=== PATIENT | male | born 1955 | race Caucasian/White ===

== ENCOUNTER 2016-08-13 08:16 | Emergency (ER) | payer MEDICARE, BC ==
[~2016-08-13] VITALS: Ht 162.6 cm; Wt 99.8 kg
[2016-08-13] MEDS ORDERED: LISINOPRIL20 MG PO (08:29)
[2016-08-13] MEDS ORDERED: ALLOPURINOL100 MG PO (08:29)
[2016-08-13] MEDS ORDERED: LOPRESSOR 50 MG50 MG PO (08:30)
[2016-08-13] MEDS ORDERED: ATIVAN1 MG PO (08:30)
[2016-08-13] MEDS ORDERED: CYCLOBENZAPRINE10 M1 OR (08:30)
[2016-08-13] MEDS ORDERED: GLIMEPIRIDE 4MG4 MG PO (08:31)
[2016-08-13] MEDS ORDERED: GABAPENTIN300 M1 PO (08:31)
[2016-08-13] MEDS ORDERED: PANTOPRAZOLE SO40 M1 PO (08:32)
[2016-08-13] MEDS ORDERED: HYDROCHLOROTH12.5 M1 PO (08:33)
[2016-08-13] MEDS ORDERED: ATORVASTATIN CA80 MG PO (08:34)
[2016-08-13] MEDS ORDERED: METFORMIN HCL1000 MG PO (08:34)
[2016-08-13] MEDS ORDERED: OXYCODONE AND A1 TA5 PO (08:35)
[2016-08-13] MEDS ORDERED: CITALOPRAM HYDR40 MG PO (08:35)
--- NOTE | 2016-08-13 08:45 | Emergency Room Report ---
History of Present Illness Time Seen by MD Cortez Presenting Problem in Triage Pt arrived:Walked Presenting Problem:PT STATES HE DROPPED THE TONGUE OF A TRAILER ON HIS LEFT FOOT YESTERDAY EVENING. PAIN IS LATERAL DORSAL AROUND THE 5TH DIGIT. BRUISING IS NOTED UNDER THE 5TH DIGIT. Onset of symptoms date/time:/ or onset unknown for:MEDICAL HX UNKNOWN Treatment Prior to Arrival: [employer]RNAMENT[employer] DES[employer] Provided by: Sepsis Risk Assessment: Temp: 98 B/P: 173/95 MAP: 121 Pulse: 107 Resp: 20 Recent fever? N Clinical Suspician of Infection? N Mental Status: 1 - Regular (Normal Baseline) Sepsis Risk:Possible Sepsis Risk Have you (or family members/close friends) recently traveled outside the [place]? N If Yes, where/when: Have you had exposure to infectious disease within the past month? TB? Other? Specify: Patient states last night he accidentally dropped the part of a trailer hitch on his LEFT foot he complains of continued pain on his lateral LEFT foot laterally. moderate achy no radiation worse with ambulation denies any ankle pain ALLERGIES Coded Allergies: No Known Allergies (08/13/16) Home Medications Reported Medications Lisinopril 20 MG PO DAILY #30 Allopurinol 100 MG PO TID #60 Lorazepam (Ativan 1MG) 1 MG PO BIDP PRN ANXIETY #60 Cyclobenzaprine Hcl 10 MG OR #30 Metoprolol Tartrate (Lopressor) 50 MG PO BID #60 Gabapentin 300 MG PO BID #90 Glimepiride (Glimepiride 4MG Tablet) 4 MG PO #60 Pantoprazole Sodium 40 MG PO DAILY #30 History Medical History General Hypertension? Yes Diabetes? Yes Insulin Dependent: No Insulin Pump: No Home FSBS? Yes Arthritis? Yes More? Yes Additional hx: GOUT Immunization Hx DT/Tetanus 1-4 Years Ago Surgical Hx Previous Surgery?Y Hernia Repair STENT Social History Smoking Hx Smoker: Current Every Day Smoker Tobacco: Yes Type Snuff Alcohol Alcohol: No Review of Systems All Other Systems Reviewed and Negative Physical Exam Vital Signs Vital Signs Date Time Temp Pulse Resp B/P Pulse O2 O2 Flow FiO2 Ox Delivery Rate 08/13 0819 98.0 107 20 173/95 99 General Appearance: Nontoxic Head: Normocephalic, without obvious abnormality, atraumatic. Eyes: conjunctiva/corneas clear ENT: Mucous membranes moist. Neck: No jugular venous distention. Extremities: no edema Musculoskeletal: LEFT foot has tenderness over the lateral foot there is no medial tenderness there is no tenderness in the ankle 5th toe is tender other toes NT there is no ecchymosis 2+ pulses capillary refill intact Sensation intact Skin: No rashes or lesions to exposed skin. Neurologic: Alert. No gross focal deficits Psychiatric: Normal affect (Messi Bartlett MD) General Appearance normal appearance Respiratory Status No: respiratory distress. Cardiovascular no JVD Neurologic alert Medical Decision Making LABS/Meds/Orders Pt receiving controlled substance in ED? No (dexter show on narcotics ) Results/Orders Orders Procedure Date/time Status FOOT-LT-3 VIEWS 08/13 0826 Active XRAY/CT/US XRAY/CT/US XRAY foot XR interpretation by reviewed by me Xray Results abnormal Comment fx proximal 5th phalanx Departure Departure Disposition DC Home or Self Care(routine) Clinical Impression Primary Impression: Toe fracture, left Condition STABLE Referrals BENÍTEZ,VIRAL (Family) Chirag Tucker MD Patient Instructions Toe Fracture Additional Instructions cast shoe keep toe anibal taped follow up with orthopedics ED Critical Care Critical Care No at 0845
[2016-08-13 08:57] VITALS: BP 173/95
--- NOTE | 2016-08-13 17:27 | RADIOLOGY REPORT PS360 ---
FOOT-LT-3 VIEWS ORDERING PHYSICIAN : Messi Bartlett MD PATIENT AGE: 60 years GENDER: Male INDICATION: INJURY pain fourth and fifth toe leelee fell across toe yesterday evening TECHNIQUE: 3 views left foot COMPARISON: None FINDINGS Fifth toe: Fracture at neck proximal phalanx fifth toe. Oblique fracture passes through the neck with just over 1 mm lateral offset of distal fracture fragment on frontal projection. Most likely this fractured mainly transverses the of the proximal phalanx. It does not appear to be any step-off or disruption at the articular surface evident on these current views. Fourth toe fracture with branching fracture seen laterally. One fracture line seen transversing the proximal metaphysis. Second fracture line passes longitudinal to the articular cortex at base proximal phalanx fourth toe. This is nondisplaced. Only very subtle lateral tilt of distal fracture fragments First second and third toe appears satisfactory. The metatarsals satisfactory. Minimal plantar calcaneal spur and minimal spurring at insertion of the tendon. IMPRESSION : Fifth toe: Fracture at neck proximal phalanx fifth toe. With minor offset and displacement Fourth toe nondisplaced fractures, transversing proximal metaphysis and extending to the articular surface at base proximal phalanx fourth
== END 2016-08-13 08:58 | disposition home or self-care (01) ==
LOC: ER 08:16
PROC: 2W3TX1Z Immobilization of Left Foot using Splint (ICD-10-PCS; principal; 2016-08-13)
DX: S92.912A Unspecified fracture of left toe(s), initial encounter for closed fracture (principal); I10 Essential (primary) hypertension; E11.9 Type 2 diabetes mellitus without complications; W22.8XXA Striking against or struck by other objects, initial encounter; Y92.009 Unspecified place in unspecified non-institutional (private) residence as the place of occurrence of the external cause